=== PATIENT | male | born 1950 | race Caucasian/White ===

== ENCOUNTER 2022-01-22 12:20 | Outpatient (REF) | payer MEDICAID, OTHER, SELFPAY ==
--- NOTE | ~2022-01-22 | XR_ITS ---
EXAMINATION: XR femur RT 2V CLINICAL INFORMATION: Reason for Exam PAIN COMPARISON: None. TECHNIQUE: AP and lateral views of the femur FINDINGS: No acute fracture or dislocation. Mild degenerative changes of the hip and knee. Atherosclerotic vascular calcification. No suprapatellar joint effusion. XR/XR femur RT 2V IMPRESSION: No acute osseous abnormality. Mild degenerative changes of the hip and knee.
== END 2022-01-22 12:21 | disposition home or self-care (01) ==
LOC: HO.XRAY 12:20
PROVIDERS: Absent Provider Pediatrics; PCP Internal Medicine; Visit Provider General Practice
DX: M79.604 Pain in right leg (principal)
CPT/HCPCS: 73552

== ENCOUNTER 2022-02-10 11:28 | Outpatient (REF) | payer MEDICAID, OTHER, SELFPAY ==
--- NOTE | ~2022-02-10 | US_ITS ---
EXAMINATION: US RETROPERITONEAL LIMITED (RENAL ONLY) CLINICAL INFORMATION: CKD. COMPARISON: None TECHNIQUE: Real-time imaging of the kidneys. FINDINGS: RIGHT KIDNEY: 11.8 x 6.0 x 6.3 cm (SAG x AP x TRV). The kidney is normal in size, contour, and echogenicity. Renal cortical thickness is normal. No renal calculi or hydronephrosis. Benign appearing renal cysts measuring up to 3.2 cm, no imaging follow-up recommended. LEFT KIDNEY: 12.9 x 6.0 x 5.6 cm (SAG x AP x TRV). The kidney is normal in size, contour, and echogenicity. Renal cortical thickness is normal. No renal calculi or hydronephrosis. Benign-appearing lower pole renal cyst measuring 0.9 cm. A 1.9 cm likely benign midpole renal cyst with a single thin internal septation. No follow-up imaging recommended for benign-appearing and likely benign appearing renal cysts. Few nonspecific echogenic foci without shadowing or twinkle artifact may be vascular reflectors. US/US renal BI IMPRESSION: Benign and likely benign appearing renal cysts, no imaging follow-up recommended..
== END 2022-02-10 11:29 | disposition home or self-care (01) ==
LOC: HO.HMGCX 11:28
PROVIDERS: PCP Internal Medicine; Visit Provider Internal Medicine
DX: N18.2 Chronic kidney disease, stage 2 (mild) (principal)
CPT/HCPCS: 76775